=== PATIENT | male | born 1970 | race Caucasian/White ===

== ENCOUNTER 2018-12-22 00:05 | Emergency (ER) | payer MEDICAID ==
[~2018-12-22] VITALS: Ht 175.3 cm; Wt 97.7 kg
[~2018-12-22 00:05] MED LIST: GABA300C10 PO; HYDR-3653 PO; ONDA4TAB13 SL; OXYC-307 PO
[2018-12-22 00:09] VITALS: BP 118/78
--- NOTE | 2018-12-22 00:22 | NUR ---
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 ALSO C/O NON-PRODUCTIVE COUGH. DENIES CP, SOB. PT. CALLED THIS RN IN AND STATED "GIVE ME SOME TORODOL NOW PLEASE, I'M NOT EVEN ASKING FOR NARCOTICS AND I NEED SOMETHING FOR THIS PAIN NOW". PT. AWAITING PROVIDER EVAL AT THAT TIME. BLANKETS PROVIDED TO PT. FOR COMFORT. DR. ZENG AT NOW.
[2018-12-22] MEDS ORDERED: KETOROLAC 30 MG/1 ML IM ONE (00:30)
[2018-12-22] MEDS ORDERED: ACETAMINOPHEN 325 MG TABLET PO ONE (00:30)
[2018-12-22] MEDS ORDERED: KETOROLAC 30 MG/1 ML ONE (00:32)
[2018-12-22] MEDS ORDERED: ACETAMINOPHEN 325 MG TABLET ONE (00:32)
--- NOTE | 2018-12-22 00:44 | NUR ---
Break RN: blood drawn, urine sent to lab. x ray done. medicated.
[2018-12-22 00:47] LABS: BASOPHILS # (AUTO) 0.04 x10^3/uL (0-0.1); BASOPHILS % (AUTO) 1 % (0-1); EOSINOPHILS % (AUTO) 3 % (1-7); LYMPHOCYTES # (AUTO) 2.18 x10^3/uL (1-3.4); LYMPHOCYTES % (AUTO) 30 % (22-44); MD NO; MEAN CORPUSCULAR HEMOGLOBIN 29.7 pg (27.5-34.5); MEAN CORPUSCULAR HGB CONC 33.8 g/dL (33.2-36.2); MEAN CORPUSCULAR VOLUME 87.8 fL (81-97); MONOCYTES # (AUTO) 0.91 x10^3/uL (0.2-0.8); MONOCYTES % (AUTO) 13 % (2-9); NEUTROPHILS # (AUTO) 3.91 x10^3/uL (1.8-6.8); NEUTROPHILS % (AUTO) 54 % (42-75); PLATELET COUNT 350 x10^3/uL (130-400); RED BLOOD COUNT 4.08 x10^6/uL (4.38-5.82); RED CELL DISTRIBUTION WIDTH 14.1 % (9.4-14.8)
[2018-12-22 00:56] LABS: ANION GAP 8 mmol/L (5-15); CALCIUM 7.6 mg/dL (8.5-10.1); CHLORIDE 105 mmol/L (98-107)
[2018-12-22 01:00] LABS: ALANINE AMINOTRANSFERASE 21 U/L (12-78); ALKALINE PHOSPHATASE 91 U/L (45-117); BILIRUBIN,TOTAL 0.4 mg/dL (0.2-1.0); CREATININE 0.83 mg/dL (0.7-1.3); TOTAL PROTEIN 6.1 g/dL (6.4-8.2)
[2018-12-22 01:03] LABS: MICROSCOPIC NOT IND
[2018-12-22 01:10] LABS: CULTURE INDICATED? NO
[2018-12-22 01:10] LABS: RAPID INFLUENZA A Negative (Negative); RAPID INFLUENZA B Negative (Negative)
[2018-12-22 01:58] LABS: AMPHETAMINE SCREEN, URINE Negative (Negative); BARBITURATE SCREEN, URINE Negative (Negative); BENZODIAZEPINE SCREEN, URINE Negative (Negative); CANNABINOID SCREEN, URINE Negative (Negative); COCAINE SCREEN, URINE Negative (Negative); METHADONE SCREEN, URINE Negative (Negative); OPIATE SCREEN, URINE Negative (Negative)
== END 2018-12-22 02:23 | disposition home or self-care (01) ==
LOC: ED 02:00
DX: M79.18 Myalgia, other site (principal); R05 Cough; Z88.0 Allergy status to penicillin; Z88.5 Allergy status to narcotic agent; Z86.19 Personal history of other infectious and parasitic diseases
CPT/HCPCS: 36415; 71046; 80053; 80307; 81003; 84145; 85025; 87400; 96372; 99284; J1885